=== PATIENT | male | born 1985 | race Caucasian/White ===

== ENCOUNTER 2021-02-14 23:21 | Emergency (ER) | payer OTHER ==
[~2021-02-14] VITALS: Ht 198.1 cm; Wt 188.2 kg
[2021-02-15] MEDS ORDERED: NAPROSYN500 MG PO (00:46)
[2021-02-15 00:50] VITALS: BP 121/80
== END 2021-02-15 00:51 | disposition home or self-care (01) ==
LOC: ER 23:21
DX: R07.89 Other chest pain (principal); R07.81 Pleurodynia; R06.02 Shortness of breath; W18.2XXA Fall in (into) shower or empty bathtub, initial encounter; Y93.89 Activity, other specified; Y92.002 Bathroom of unspecified non-institutional (private) residence as the place of occurrence of the external cause; Y99.8 Other external cause status